=== PATIENT | female | born 1985 | race Asian ===

== ENCOUNTER 2018-12-07 15:13 | Emergency (ER) | payer MEDICAID ==
[2018-12-07] MEDS ORDERED: Ondansetron 4 MG/2 ML SDV IV ONE (15:18)
[2018-12-07] MEDS ORDERED: Sodium Chloride 0.9% 1,000 ML IV ONE (15:18)
--- NOTE | 2018-12-07 15:20 | EDM.PDOC ---
ED HPI GENERAL MEDICAL PROBLEM - General Stated Complaint: PUKING UP BLOOD. Time Seen by Provider: 12/07/18 15:19 Source of Information: Reports: Family History Limitations: Reports: Language Barrier - History of Present Illness INITIAL COMMENTS - FREE TEXT/NARRATIVE: family state pt vomited blood x 6 since 1pm then got dizzy and came here. denies prior h/o, denies abd pain, no diarrhoea. - Related Data Allergies Allergy/AdvReac Type Severity Reaction Status Date / Time No Known Allergies Allergy Verified 12/07/18 15:19 Home Meds: Home Meds . [No Known Home Meds] 12/07/18 [History] ED ROS GENERAL - Review of Systems Review Of Systems: ROS reveals no pertinent complaints other than HPI. ED EXAM, GI/ABD - Physical Exam Exam: See Below Exam Limited By: No Limitations General Appearance: Alert, WD/WN, Mild Distress, Other (discomfort) Ears: Hearing Grossly Normal Throat/Mouth: Normal Voice, No Airway Compromise Head: Atraumatic Neck: Non-Tender, Full Range of Motion Respiratory/Chest: No Respiratory Distress Cardiovascular: Regular Rate, Rhythm Course - Vital Signs Last Recorded V/S: Last Vital Signs Temp 36.3 C 12/07/18 15:20 Pulse 76 12/07/18 15:20 Resp 14 12/07/18 15:20 BP 112/79 12/07/18 15:20 Pulse Ox 98 12/07/18 15:20 - Orders/Labs/Meds Orders: Active Orders 24 hr Category Date Time Status CULTURE BLOOD [BC] Stat Lab 12/07/18 15:26 Results Labs: Laboratory Tests 12/07/18 12/07/18 12/07/18 Range/Units 15:26 15:26 15:26 WBC 14.6 H (5.0-10.0) 10^3/uL RBC 5.90 H (4.2-5.4) 10^6/uL Hgb 17.2 H (12.0-16.0) g/dL Hct 50.5 H (37.0-47.0) % MCV 85.6 (80-100) fL MCH 29.2 (27.0-34.0) pg MCHC 34.1 (33.0-35.0) g/dL Plt Count 220 (150-450) 10^3/uL Neut % (Auto) 86.1 H (42.2-75.2) % Lymph % (Auto) 9.5 L (20.5-50.1) % [place] % (Auto) 3.8 (2-8) % Eos % (Auto) 0.5 L (1.0-3.0) % Baso % (Auto) 0.1 (0.0-1.0) % Sodium 136 (135-145) mmol/L Potassium 3.7 (3.6-5.0) mmol/L Chloride 105 (101-111) mmol/L Carbon Dioxide 19.0 L (21.0-31.0) mmol/L Anion Gap 15.7 BUN 20 H (7-18) mg/dL Creatinine 0.6 (0.6-1.3) mg/dL Est Cr Clr Drug Dosing TNP Estimated GFR (MDRD) > 60 BUN/Creatinine Ratio 33.33 Glucose 116 H (74-105) mg/dL Lactic Acid 1.7 (0.5-2.2) mmol/L Calcium 8.7 (8.4-10.2) mg/dl Total Bilirubin 0.8 (0.2-1.0) mg/dL AST 33 (10-42) IU/L ALT 30 (10-60) IU/L Alkaline Phosphatase 82 (42-121) IU/L Total Protein 8.6 H (6.7-8.2) g/dl Albumin 5.2 (3.2-5.5) g/dl Globulin 3.4 Albumin/Globulin Ratio 1.53 Amylase 75 (28-100) U/L Lipase 30 (22-51) U/L HCG, Qual 12/07/18 Range/Units 15:26 WBC (5.0-10.0) 10^3/uL RBC (4.2-5.4) 10^6/uL Hgb (12.0-16.0) g/dL Hct (37.0-47.0) % MCV (80-100) fL MCH (27.0-34.0) pg MCHC (33.0-35.0) g/dL Plt Count (150-450) 10^3/uL Neut % (Auto) (42.2-75.2) % Lymph % (Auto) (20.5-50.1) % Fall[place] % (Auto) (2-8) % Eos % (Auto) (1.0-3.0) % Baso % (Auto) (0.0-1.0) % Sodium (135-145) mmol/L Potassium (3.6-5.0) mmol/L Chloride (101-111) mmol/L Carbon Dioxide (21.0-31.0) mmol/L Anion Gap BUN (7-18) mg/dL Creatinine (0.6-1.3) mg/dL Est Cr Clr Drug Dosing Estimated GFR (MDRD) BUN/Creatinine Ratio Glucose (74-105) mg/dL Lactic Acid (0.5-2.2) mmol/L Calcium (8.4-10.2) mg/dl Total Bilirubin (0.2-1.0) mg/dL AST (10-42) IU/L ALT (10-60) IU/L Alkaline Phosphatase (42-121) IU/L Total Protein (6.7-8.2) g/dl Albumin (3.2-5.5) g/dl Globulin Albumin/Globulin Ratio Amylase (28-100) U/L Lipase (22-51) U/L HCG, Qual Negative Meds: Medications Discontinued Medications Generic Name Dose Route Start Last Admin Trade Name Freq PRN Reason Stop Dose Admin Sodium Chloride 1,000 mls @ 999 mls/hr 12/07/18 15:18 12/07/18 15:35 Normal Saline IV 12/07/18 16:18 999 mls/hr .BOLUS ONE Administration Ondansetron HCl 4 mg 12/07/18 15:18 12/07/18 15:35 Zofran IV 12/07/18 15:19 4 mg ONETIME ONE Administration Pantoprazole Sodium 80 mg 12/07/18 16:37 Protonix Iv IVPUSH 12/07/18 16:38 .BOLUS ONE - Re-Assessments/Exams Free Text/Narrative Re-Assessment/Exam: 12/07/18 16:[address] Mcgee who kindly accepted pt. pt told spouse she does not want to go to [facility] but back to her own PMD in [facility]. explained to spouse & pt the possiblity of massive bleed resulting in . pt & spouse conversed for long time over the issue and still insisted on AMA. Departure - Departure Time of Disposition: 16:52 Disposition: Against Medical Advice 07 Condition: Fair Clinical Impression: GI bleeding Qualifiers: GI bleed type/associated pathology: unspecified gastrointestinal hemorrhage type Qualified Code(s): K92.2 - Gastrointestinal hemorrhage, unspecified - Discharge Information Instructions: Gastrointestinal Bleeding, [id number] - My Orders Last 24 Hours: My Active Orders 12/07/18 15:26 CULTURE BLOOD [BC] Stat - Assessment/Plan Last 24 Hours: My Active Orders 12/07/18 15:26 CULTURE BLOOD [BC] Stat
[2018-12-07 15:54] LABS: ANION GAP 15.7; CHLORIDE,CL 105 mmol/L (101-111); SODIUM,NA 136 mmol/L (135-145)
[2018-12-07] MEDS ORDERED: Pantoprazole 40 MG Vial IVPUSH ONE (16:37)
== END 2018-12-07 17:08 | disposition left against medical advice (07) ==
LOC: DL.ED 15:13
DX: K92.2 Gastrointestinal hemorrhage, unspecified (principal)
CPT/HCPCS: 36415; 80053; 82150; 82271; 83605; 83690; 84703; 85025; 87040; 96361; 96374; 96375; 99285; C9113; J2405; J7030